=== PATIENT | male | born 1965 | race Caucasian/White ===

== ENCOUNTER 2019-11-27 11:01 | Inpatient (IN) | payer MEDICARE, OTHER ==
[~2019-11-27] VITALS: Ht 175.3 cm; Wt 136.1 kg
--- NOTE | 2019-11-27 11:10 | NUR ---
urine collected and sent to lab
--- NOTE | 2019-11-27 11:14 | NUR ---
niece [phone] Almaz Aden
--- NOTE | 2019-11-27 11:15 | NUR ---
ER PHLEB AT BEDSIDE FOR BLOOD DRAW.
[2019-11-27] MEDS ORDERED: OLANZAPINE 5 MG TABLET ONE (11:24)
[2019-11-27 11:26] LABS: BASOPHILS # (AUTO) 0.1 /CMM (0.0-0.2); BASOPHILS % (AUTO) 1.9 % (0.0-2.0); EOSINOPHILS % (AUTO) 1.9 % (0.0-6.0); HEMATOCRIT 45 % (39-51); LYMPHOCYTES # (AUTO) 2.6 /CMM (0.8-4.8); LYMPHOCYTES % (AUTO) 43.6 % (20.0-44.0); MEAN CORPUSCULAR HGB CONC 33 g/dl (31.0-36.0); MEAN CORPUSCULAR VOLUME 84 fL (80-96); MONOCYTES # (AUTO) 0.4 /CMM (0.1-1.30); NEUTROPHILS # (AUTO) 2.7 /CMM (1.8-8.9); NEUTROPHILS % (AUTO) 45.6 % (43.0-81.0); PLATELET COUNT (AUTO) 134 /CMM (150-450); RED BLOOD CELL COUNT(AUTO) 5.43 MIL/uL (4.5-6.0); WHITE BLOOD COUNT (AUTO) 5.9 K/uL (4.3-11.0)
[2019-11-27 11:27] LABS: APPEARANCE,URINE Clear (CLEAR); BILIRUBIN,URINE Negative (NEGATIVE); BLOOD, URINE Trace-intact Ery/uL (NEGATIVE); COLOR,URINE Yellow (YELLOW); KETONES,URINE Negative (NEGATIVE); LEUKOCYTE ESTERASE ,URINE Negative (NEGATIVE); NITRITE, URINE Negative (NEGATIVE); PROTEIN,URINE Negative (NEGATIVE); UGLUCOSE Negative (NEGATIVE); UROBILINOGEN,URINE 0.2 EU/dL (0.2)
[2019-11-27 11:28] LABS: BACTERIA,URINE Rare /HPF (None Seen); RBC,URINE 0-2 /HPF (0-2); SQUAMOUS EPITHELIAL CELL,UR Few /HPF (None Seen); WBC,URINE 0-2 /HPF (0-3)
[2019-11-27] MEDS ORDERED: OLANZAPINE 5 MG TABLET PO ONE (11:30)
[2019-11-27 11:31] LABS: CALCIUM, SERUM 8.2 mg/dL (8.5-10.1); CARBON DIOXIDE 30 mmol/L (21-32); CHLORIDE 103 mmol/L (98-107); CREATININE 1.1 mg/dL (0.6-1.3); GLUCOSE 95 mg/dL (74-106); POTASSIUM 3.8 mmol/L (3.5-5.1); SODIUM SERUM 141 mmol/L (136-145); UREA NITROGEN, BLOOD 13 mg/dL (7-18)
--- NOTE | 2019-11-27 11:33 | NUR ---
PT REC'D TO ER CAROLINE WANTS TO KILL HIMSELF BY CUTTING HIS WRISTS. LIVES WITH NIECE. LABS DRAWN SENT TO LAB . PT PLEASANT AND CALM
[2019-11-27 11:46] LABS: ACETAMINOPHEN 0 ug/ml (10-30); ALANINE AMINOTRANSFERASE 37 U/L (12-78); ALBUMIN 3.6 g/dL (3.4-5.0); ALCOHOL, BLOOD < 3 mg/dL (0-0); ALKALINE PHOSPHATASE 142 U/L (46-116); ASPARTATE AMINOTRANSFERASE 26 U/L (15-37); BILIRUBIN,DIRECT 0.1 mg/dL (0.0-0.2); BILIRUBIN,TOTAL 0.3 mg/dL (0.2-1.0); SALICYLATE 0.8 mg/dL (2.8-20.0); TOTAL PROTEIN, SERUM 7.6 g/dL (6.4-8.2)
--- NOTE | 2019-11-27 12:35 | NUR ---
PT EATTING WATCHING TV CALM
--- NOTE | 2019-11-27 17:19 | NUR ---
JH WEAVER [phone]
--- NOTE | 2019-11-27 18:34 | NUR ---
Renetta walters in [facility] - 11/27/19 at 1839 by SHANEKA PT VERY HARD STICK TRIED 2 TIMES GENER RN WILL TRY
--- NOTE | 2019-11-27 18:39 | NUR ---
OWEN HERE TO SEE PATIENT
--- NOTE | 2019-11-27 20:39 | NUR ---
REPORT GIVEN TO ESTELLA GAMEZ FOR THEODORA.
[2019-11-27] MEDS ORDERED: QUET50TA PO (21:06)
[2019-11-27] MEDS ORDERED: RISP3TAB5 PO (21:06)
[2019-11-27] MEDS ORDERED: QUET300T2 PO (21:06)
[2019-11-27] MEDS ORDERED: VENL75CA62 PO (21:06)
--- NOTE | 2019-11-27 21:06 | NUR ---
PATIENT TRANSFERED TO [facility].
[2019-11-27] MEDS ORDERED: TEMAZEPAM 15 MG CAPSULE PO PRN (21:30)
[2019-11-27] MEDS ORDERED: MAG HYDROX/AL HYDROX/SIMETH 30 ML UDC PO PRN (21:30)
[2019-11-27] MEDS ORDERED: ACETAMINOPHEN 325 MG TABLET PO PRN (21:30)
[2019-11-27] MEDS ORDERED: clonazePAM 0.5 MG TABLET PO PRN (21:30)
[2019-11-27] MEDS ORDERED: MAGNESIUM HYDROXIDE 30 ML UDC PO PRN (21:30)
[2019-11-27] MEDS ORDERED: BLOOD SUGAR DIAGNOSTIC 1 EACH STRIP IN ONE (22:00)
[2019-11-27 22:27] VITALS: BP 122/75
--- NOTE | 2019-11-27 23:23 | NUR ---
ADMISSION NOTES: ADMITTED THIS 54Y/O MALE PATIENT ADMIT FROM [facility] ,ER / INTIALLY FROM HOME, ADMITTED TO [facility] ON 5150 HOLD, PER HOLD DTS AND SI PLAN TO CUT WRIST WITH KNIEF AND JUMP IN FRONT THE TRAFFIC ,UPON FACE TO FACE ASSESSMENT PATIENT IS A&O X3 DEPRESSED, COOPERTIVE , EASILY AGITATED ,DENIES SI /HI AT THIS TIME, PT. IS POOR HISTORIAN, POOR INSIGHT ,POOR JUDGEMENT, PT. REFUSED INTITAALY BLOOD SUGAR CHECK , ENCOURAGED, EXPLAINED RISKS AND BENEFITS STILL REFUSED, PER PT. I DONT WANTS CHECK AT THIS TIME , BOTH MD AWARE AND NOTIFIED OF THE ADMISSION, BELONGINGS CONTRABAND WERE DONE , NURSING ASSESSMENT DONE ,PT. RIGHTS DISCUSS BY DIRECTOR GRAPHICS , PROVIDE THE PT. WITH HANDBOOK, AND MEDICATIONS GUIDE, ENVIRONMENTAL SAFETY CHECK DONE, ENCOURAGED PT. VERBALIZED ANY FEELING CONCERN TO STAFF, ORIENT TO UNIT POLICY, NO ACUTE DISTRESS NOTED,VITAL SIGNS WNL ,DENIES ANY PAIN AT THIS TIME,WILL CONTINUE TO MONITOR FOR Q15 SAFETY AND BEHAVIOR.
--- NOTE | 2019-11-27 23:36 | NUR ---
RN NOTES: PLACED CALL TO PT. RICA BERMUDEZ ABOUT ADMISSION [facility] ,AT THIS # [phone] , R
--- NOTE | 2019-11-28 07:05 | NUR ---
PT. C/O ANXIOUS ,AGGRESSIVE ,KLONOPIN 0.5 MG PO PRN GIVEN ,WILL CONTINUE TO MONITOR.
[2019-11-28 08:00] VITALS: BP 144/78
[2019-11-28] MEDS ORDERED: VITAMINS A AND D 56.7 GM TUBE TP PRN (09:00)
[2019-11-28] MEDS ORDERED: IBUPROFEN 400 MG TABLET PO PRN (09:00)
[2019-11-28] MEDS ORDERED: KETOCONAZOLE SHAMPOO 120 ML BOTTLE TP PRN (09:00)
[2019-11-28] MEDS: FAMOTIDINE (20 MG) 20 MG TABLET PO SCH (09:18)
[2019-11-28 16:00] VITALS: BP 143/78
[2019-11-28] MEDS ORDERED: diphenhydrAMINE HCL 50 MG/ML VIAL IM STA (17:25)
[2019-11-28] MEDS ORDERED: HALOPERIDOL LACTATE INJ 5 MG/ML VIAL IM STA (17:25)
[2019-11-28] MEDS ORDERED: LORAZEPAM INJ 2 MG/ML VIAL IM STA (17:25)
--- NOTE | 2019-11-28 17:30 | NUR ---
RN-CO: Patient was very agitated while he was speaking to Dr Mtz, he yelled and screamed when he knew fro Dr Mtz that he cannot be transfer to [facility]. He threw a bottle of water to Dr Mtz, followed him as if he will hurt his doctor. Security was called and shot was ordered. Haldol 10 mg IM, ATIVAN 2 MG im STAT, BENADRYL 50 MG IM STAT NOTED AND CARRIED OUT. 1:1 OBSERVATION WAS RENDERED.
[2019-11-28 20:30] VITALS: BP 144/79
[2019-11-28] MEDS: QUETIAPINE FUMARATE 100 MG TABLET PO SCH (21:13)
[2019-11-29 08:00] VITALS: BP 110/67
[2019-11-29] MEDS: QUETIAPINE FUMARATE 100 MG TABLET PO SCH ×2 (08:21→21:25)
[2019-11-29] MEDS: VENLAFAXINE XR 150 MG CAP.SR.24H PO SCH (08:21)
[2019-11-29] MEDS: FAMOTIDINE (20 MG) 20 MG TABLET PO SCH (08:21)
--- NOTE | 2019-11-29 11:40 | NUR ---
INITIAL DISCHARGE PLAN: Patient wishes to return home [id number] [place] [address]. AMY contacted pts rey Desire [phone] who confirmed pt is able to return home and she will be available for transportation. AMY will help form a safe and proper discharge in collaboration with .
--- NOTE | 2019-11-29 11:40 | NUR ---
FAMILY CONTACT: AMY contacted pts niece Desire [phone] who confirmed pt is able to return home and she will be available for transportation.
--- NOTE | 2019-11-29 12:00 | NUR ---
SUBSTANCE ABUSE INTERVENTION: SW provided substance abuse intervention. Pt refused to sign due to increased agitation.
--- NOTE | 2019-11-29 13:54 | NUR ---
FAMILY CONTACT: AMY contacted pts rey Desire [phone] to inform her pt is being discharged tomorrow as he wishes to check himself in as a voluntary pt at [facility]. Niece asked why pt could not be transferred directly from [facility] to [facility] and AMY explained that hospital policy does not allow for transfer to another psychiatric facility. Saadiaece became upset and stated that she is not available for transportation.
[2019-11-29 20:12] VITALS: BP 116/68
[2019-11-29 22:54] LABS: BASOPHILS % (AUTO) 1.3 % (0.0-2.0); EOSINOPHILS % (AUTO) 3.4 % (0.0-6.0); HEMATOCRIT 40 % (39-51); HEMOGLOBIN 13.1 g/dL (13.5-17.5); LYMPHOCYTES # (AUTO) 1.6 /CMM (0.8-4.8); LYMPHOCYTES % (AUTO) 51.7 % (20.0-44.0); MEAN CORPUSCULAR HGB CONC 32 g/dl (31.0-36.0); MEAN CORPUSCULAR VOLUME 84 fL (80-96); MONOCYTES # (AUTO) 0.3 /CMM (0.1-1.30); MONOCYTES % (AUTO) 8.7 % (2.0-12.0); NEUTROPHILS # (AUTO) 1.1 /CMM (1.8-8.9); NEUTROPHILS % (AUTO) 34.9 % (43.0-81.0); PLATELET COUNT (AUTO) 110 /CMM (150-450); RED BLOOD CELL COUNT(AUTO) 4.82 MIL/uL (4.5-6.0); WHITE BLOOD COUNT (AUTO) 3.1 K/uL (4.3-11.0)
[2019-11-29 23:09] LABS: ALBUMIN 2.9 g/dL (3.4-5.0); BILIRUBIN,TOTAL 0.4 mg/dL (0.2-1.0); CALCIUM, SERUM 8.5 mg/dL (8.5-10.1); CREATININE 1.1 mg/dL (0.6-1.3); POTASSIUM 3.9 mmol/L (3.5-5.1); TOTAL PROTEIN, SERUM 6.4 g/dL (6.4-8.2)
[2019-11-30 08:00] VITALS: BP 110/74
[2019-11-30] MEDS: VENLAFAXINE XR 150 MG CAP.SR.24H PO SCH (08:30)
[2019-11-30] MEDS: FAMOTIDINE (20 MG) 20 MG TABLET PO SCH (08:37)
[2019-11-30] MEDS: QUETIAPINE FUMARATE 100 MG TABLET PO SCH (08:38)
--- NOTE | 2019-11-30 10:01 | NUR ---
DISCHARGE NOTE: Pt will be discharged at 2:00pm via [facility] home [id number] [place] [address] [address] [facility] [address]. Pts niece Desire [phone] has been notified. Pts mood is anxious with congruent affect. Pt denied visual/auditory hallucinations and denied suicidal/homicidal ideation. AMY provided referrals to [facility] Address: [address] [place] [address] and [facility] Address: [address], [place] [address] to address his substance use. Pt stated he was going to go to [facility] Address: [address] [place] [address] once discharged from the hospital. AMY also provided a referral to [facility] Address: [address] [id number] . The multidisciplinary exitcare form was done, printed, signed, and given to the patient.
--- NOTE | 2019-11-30 13:48 | NUR ---
RN NOTE. DC NOTE- PT DC AT THIS TIME TO HOME. BUS CARD GIVEN. PT ALERT ORIENTED TO PERSON PLACE TIME AND PURPOSE. DENIES SI HI AH VH AT TIME OF DC. VS STABLE. SKIN INTACT. ALL VALUABLES AND BELONGINGS RETURNED AND SIGNED FOR. DC PLANNING DISCUSSED AND VERBALIZED UNDERSTANDING. IDWRISTBAND REMOVED. ESCORTED OUT OF FACILITY BY THIS RN.
== END 2019-11-30 13:35 | disposition home or self-care (01) | DRG 885 ==
LOC: ER 11:01 → GPS 20:47
PROVIDERS: ADMIT Psychiatry & Neurology Psychiatry; ATTEND Nurse Practitioner Acute Care
DX: F25.9 Schizoaffective disorder, unspecified (principal); Z68.41 Body mass index [BMI] 40.0-44.9, adult; F15.10 Other stimulant abuse, uncomplicated; D69.6 Thrombocytopenia, unspecified; E66.01 Morbid (severe) obesity due to excess calories; F41.9 Anxiety disorder, unspecified; F29 Unspecified psychosis not due to a substance or known physiological condition; M47.816 Spondylosis without myelopathy or radiculopathy, lumbar region; B35.0 Tinea barbae and tinea capitis; G89.29 Other chronic pain; I10 Essential (primary) hypertension
CPT/HCPCS: 36415; 80048-TC; 80053-TC; 80061-TC; 80076-TC; 80305; 81000-TC; 82565-TC; 85025-TC; 87081-TC; G0480; J1200; J1630; J2060